=== PATIENT | male | born 1955 | race Two or more races ===

== ENCOUNTER 2024-01-01 09:10 | Emergency (ER) | payer OTHER ==
[~2024-01-01] VITALS: Ht 180.3 cm; Wt 102.1 kg
[2024-01-01] MEDS ORDERED: PRISTIQ25 MG PO (09:32)
[2024-01-01] MEDS ORDERED: WELLBUTRIN XL300 MG PO (09:32)
[2024-01-01] MEDS ORDERED: HYDRODIURIL12.5 MG PO (09:33)
[2024-01-01] MEDS ORDERED: COZAAR50 MG PO (09:33)
[2024-01-01] MEDS ORDERED: XANAX XR0.5 MG PO (09:33)
== END 2024-01-01 11:29 | disposition home or self-care (01) ==
LOC: ER 09:11
DX: R07.81 Pleurodynia (principal); M25.579 Pain in unspecified ankle and joints of unspecified foot; W19.XXXA Unspecified fall, initial encounter